=== PATIENT | male | born 1995 | race Caucasian/White ===

== ENCOUNTER 2024-09-10 17:04 | Emergency (ER) | payer SELFPAY ==
[2024-09-10 17:10] VITALS: BP 138/76; PULSE 106; RESP 17; TEMP 36.9; O2SAT 96; BMI 25.7
--- NOTE | 2024-09-10 17:14 | CTR_ITS ---
PROCEDURE INFORMATION: Exam: CT Head Without Contrast Exam date and time: 09/10/2024 5:35 PM Age: 28 years old Clinical indication: Injury or trauma; Fall; Blunt trauma (contusions or hematomas); With loss of consciousness; Not specified; Injury date: 09/08/2024 TECHNIQUE: Imaging protocol: Computed tomography of the head without contrast. Radiation optimization: All CT scans at this facility use at least one of these dose optimization techniques: automated exposure control; mA and/or kV adjustment per patient size (includes targeted exams where dose is matched to clinical indication); or iterative reconstruction. COMPARISON: No relevant prior studies available. RADIATION DOSE METRICS: Total DLP (mGy-cm): 1043.39 FINDINGS: Brain: Normal. No hemorrhage. Unremarkable white matter. No mass effect. Cerebral ventricles: No ventriculomegaly. Paranasal sinuses: Visualized sinuses are unremarkable. No fluid levels. Mastoid air cells: Visualized mastoid air cells are well aerated. Bones: Unremarkable. No acute fracture. Soft tissues: Unremarkable. CT/CT head wo con* [id number] IMPRESSION: No acute intracranial abnormality.
--- NOTE | 2024-09-10 17:19 | W.ED.HEATRA ---
HPI - Head Injury General: Chief complaint: Head Injury Stated complaint: fell, hit head Time Seen by Provider: 09/10/24 17:14 Source: patient Mode of arrival: ambulatory Limitations: no limitations History of Present Illness: 28-year-old male who states that he had been drinking heavily 2 nights ago with coworkers and had multiple falls he states he hit his back of his head on concrete has been having some headaches and decreased energy since then. He is unsure if he had loss consciousness has had no vomiting denies any neck pain or any other injuries Associated symptoms: Deny nausea, neck pain or vomiting Related Data Allergies Allergy/AdvReac Type Severity Reaction Status Date / Time No Known Allergies Allergy Verified 09/10/24 17:12 Review of Systems Const: Denies: fever(s), chills, body aches or change in appetite Eyes: Denies: blurry vision or eye discomfort ENMT: Denies: throat pain or dental pain Card: Denies: chest pain Resp: Denies: dyspnea GI: Denies: abdominal pain, nausea, vomiting or diarrhea Musc: Denies: neck pain or back pain Skin/Breast: Denies: rash Neuro: Reports: headache(s) Physical Exam Const: COMMON NORMALS: no acute distress, patient oriented x3 and healthy appearing HENMT: COMMON NORMALS: normocephalic HEAD & SCALP: normocephalic OTHER: tenderness to posterior scalp Eye: COMMON NORMALS: Equal, round and reactive pupils present and EOMs intact bilaterally PUPIL: Yes Equal, round and reactive pupils present Neck/C-Spine: COMMON NORMALS: full ROM and supple CERVICAL SPINE: No pain with cervical ROM and No Cervical spine tenderness Chest: COMMONS NORMALS: normal inspection of the chest Resp: COMMON NORMALS: normal respiratory effort Cardio: COMMON NORMALS: regular rate RATE: regular rate Extremity: COMMON NORMALS: normal to inspection and full ROM Neuro: COMMON NORMALS: patient oriented x3, moves all extremities and no focal motor deficits Psych: COMMON NORMALS: mental status grossly normal, Normal thought process present and cooperative THOUGHT PROCESS: Normal thought process present Skin: COMMON NORMALS: no rashes or lesions noted and no wounds GENERAL SKIN EXAM: no rashes or lesions noted Course Vital Signs: Vital signs: Vital Signs Temperature 98.4 F 09/10/24 17:10 Pulse Rate 114 H 09/10/24 17:49 Respiratory Rate 17 09/10/24 17:10 Blood Pressure 131/79 09/10/24 17:49 Pulse Oximetry 95 09/10/24 17:49 Oxygen Delivery Me thod Room Air 09/10/24 17:49 MDM - Head Injury Medcial Decision Making Patient presents with a closed head injury imaging here is negative he is well-appearing here stable for discharge follow-up PCP return if worsening. Medical Records I reviewed the patient's medical records. Lab Data Radiology Impressions Head CT 09/10/24 17:14 IMPRESSION: No acute intracranial abnormality. All radiology interpretation(s) finalized by discharge Discharge Plan Discharge Patient Disposition: Home Clinical Impression: Closed head injury Condition: Stable Discharge Orders: Discharge ED (Routine); Ordered 09/10/24 Ordered By: Vanesa Marx Discharge Diet: Advance as tolerated Discharge Activity: Resume usual activity Patient Instructions: Head Injury (ED) Print Language: Citizen Of [place] Coding Level of Care Code ED Guidance Consultant for Karthik Sanches
[2024-09-10 17:49] VITALS: BP 131/79; PULSE 114; O2SAT 95
[2024-09-10 18:06] VITALS: BP 138/73; PULSE 104; O2SAT 95
== END 2024-09-10 18:07 | disposition home or self-care (01) ==
PROVIDERS: Emergency Provider Emergency Medicine
DX: S09.8XXA Other specified injuries of head, initial encounter (principal); W19.XXXA Unspecified fall, initial encounter
CPT/HCPCS: 70450; 99284

== ENCOUNTER 2025-02-22 23:23 | Emergency (ER) | payer SELFPAY ==
[2025-02-22 23:23] VITALS: BP 138/71; PULSE 100; RESP 18; TEMP 36.6; O2SAT 91; BMI 23.0
--- NOTE | 2025-02-22 23:35 | ED_ITS ---
HPI - Alcohol 2 General: Chief Complaint: Alcohol Stated Complaint: ETOH History of Present Illness: Patient is a 29-year-old male who presents with acute alcohol intoxication. He reports consuming an unusually large amount of alcohol in the form of multiple shots, which is not his typical behavior. Patient states he normally consumes three, four, five drinks, suggesting today's consumption was significantly higher than his baseline. He describes feeling very, very, very drunk. Additionally, the patient complains of pain in his shoulders and back.Patient appears confused and in distress. Related Data Allergies Allergy/AdvReac Type Severity Reaction Status Date / Time No Known Allergies Allergy Verified 09/10/24 17:12 Physical Exam 2 Const: GENERAL APPEARANCE: cooperative, anxious and odor of alcohol detected; not ill appearing NUTRITIONAL APPEARANCE: thin ORIENTATION/CONSCIOUSNESS: Yes awake, Yes oriented to person and Yes oriented to place; not oriented to time HENMT: COMMON NORMALS: normocephalic, atraumatic and Normal external nose present HEAD & SCALP: normocephalic and atraumatic FACE & SINUS: normal facial exam and face symmetric NOSE: Normal external nose present Eye: COMMON NORMALS: Equal, round and reactive pupils present and EOMs intact bilaterally PUPIL: Yes Equal, round and reactive pupils present Neck/C-Spine: GENERAL: Yes trachea midline Chest: CHEST: Yes Symmetrical chest wall rise Resp: COMMON NORMALS: normal respiratory effort, No use of accessory muscles and clear to auscultation bilaterally AUSCULTATION: clear to auscultation bilaterally Cardio: COMMON NORMALS: regular rhythm RATE: bradycardic RHYTHM: regular rhythm Neuro: SENSORIUM/ORIENTATION: Yes oriented to person, Yes oriented to place and No oriented to time SPEECH: abnormal speech Details: slurred GAIT: Yes Staggering gait present MOTOR EXAM: Normal motor muscle tone present throughout Course 2 Vital Signs: Vital signs: Vital Signs Temperature 97.8 F 02/22/25 23:23 Pulse Rate 100 02/22/25 23:23 Respiratory Rate 18 02/22/25 23:23 Blood Pressure 138/71 02/22/25 23:23 Pulse Oximetry 91 02/22/25 23:23 Oxygen Delivery Me thod Room Air 02/22/25 23:23 MDM - Alcohol Medical Decision Making Alcohol level is 375. Other laboratory is nonactionable. He was given IV fluid, IV thiamine, Haldol and Zofran. He is resting comfortably. He is not suicidal or homicidal. On sobering to some degree, he will be discharged to custody of a responsible sober adult. Medically, he is stable. Lab Data 02/22/25 23:02/22/25 23: Laboratory Results WBC 9.41 10^3/uL (3.29-11.43) 02/22/25: RBC 4.99 10^6/uL (3.85-5.65) 02/22/25 23: Hgb 16.90 g/dL (11.27-16.99) 02/22/25 23: Hct 46.7 % (37-53) 02/22/25: MCV 93.6 fl (82-101) 02/22/25: MCH 33.9 pg (27-33) H 02/22/25: MCHC 36.2 g/dL (30-55) 02/22/25: RDW 13.1 % (12.1-15.1) 02/22/25: Plt Count 266 10^3/cmm (157-399) 02/22/25: MPV 8.9 fL (7.4-10.4) 02/22/25: Neut % (Auto) 45.6 % 02/22/25: Lymph % (Auto) 44.0 % 02/22/25: [place] % (Auto) 6.6 % 02/22/25: Eos % (Auto) 2.1 % 02/22/25 Baso % (Auto) 1.5 % 02/22/25: Neut # (Auto) 4.29 10^3/uL (1.8-7.7) 02/22/25: Lymph # (Auto) 4.1 10^3/uL (0.8-4.8) 02/22/25: [place] # (Auto) 0.6 10^3/uL (0.2-0.9) 02/22/25: Eos # (Auto) 0.2 10^3/uL (0.0-0.8) 02/22/25: Baso # (Auto) 0.1 10^3/uL (0.0-0.1) 02/22/25 23:29 Nucleated RBC % (auto) 0 % 02/22/25 23: Nucleated RBCs # 0.0 /100WBC 02/22/25 23:29 Sodium 144 mmol/L (136-145) 02/22/25 23:29 Potassium 3.9 mmol/L (3.5-5.1) 02/22/25 23:29 Chloride 105 mmol/L (98-107) 02/22/25 23:29 Carbon Dioxide 18 mmol/L (22-29) L 02/22/25 23:29 Anion Gap 24.9 (5-19) H 02/22/25 23:29 BUN 6 mg/dL (6-20) 02/22/25 23: Creatinine 0.8 mg/dL (0.7-1.2) 02/22/25 23:29 GFR Calculation 114.3 mL/min (90-130) 02/22/25 23:29 Glucose 105 mg/dL (65-115) 02/22/25 23:29 Calculated Osmolality 296 mOsm/kg (285-295) H 02/22/25 23:29 Calcium 9.2 mg/dL (8.5-10.5) 02/22/25 23:29 Total Bilirubin 0.2 mg/dL (0.15-1.2) 02/22/25 23:29 AST 33 U/L (0-40) 02/22/25 23:29 ALT 27 U/L (0-41) 02/22/25 23:29 Alkaline Phosphatase 112 U/L (40-130) 02/22/25 23:29 Total Protein 7.4 g/dL (6.6-8.7) 02/22/25 23:29 Albumin 5.0 g/dL (3.5-5.2) 02/22/25 23: Globulin 2.4 g/dL (1.3-4.6) 02/22/25 23:29 Salicylates < 0.3 mg/dL (3-10) L 02/22/25 23:29 Acetaminophen < 5.0 ug/mL (10-30) L 02/22/25 23:29 Ethyl Alcohol 375 mg/dL (0-10) H* 11/01/25 23:29 No radiology studies performed this visit Discharge Plan Discharge Patient Disposition: Home Clinical Impression: Alcoholic intoxication Condition: Stable Discharge Orders: Discharge ED (Routine); Ordered 02/23/25 Ordered By: Sina Monet Patient Instructions: Alcohol Intoxication (ED), Alcohol Withdrawal (ED), Opioid Safety, Pain Management, Patient Portal & Paul Instructions Print Language: Latvian Coding Level of Care Code ED Internal Medicine Veterinary Technician for Karthik Sanches
[2025-02-22 23:43] LABS: Hematocrit 46.7 % (37-53); Hemoglobin 16.90 g/dL (11.27-16.99); Mean Corpuscular HGB Conc 36.2 g/dL (30-55); Mean Corpuscular Hemoglobin 33.9 pg (27-33); Mean Corpuscular Volume 93.6 fl (82-101); Nucleated Red Blood Cells % 0 %; Platelet Count 266 10^3/cmm (157-399); Red Blood Count 4.99 10^6/uL (3.85-5.65); White Blood Count 9.41 10^3/uL (3.29-11.43)
[2025-02-23 00:04] LABS: Alanine Aminotransferase 27 U/L (0-41); Albumin Level 5.0 g/dL (3.5-5.2); Alkaline Phosphatase 112 U/L (40-130); Blood Urea Nitrogen 6 mg/dL (6-20); Calcium 9.2 mg/dL (8.5-10.5); Carbon Dioxide 18 mmol/L (22-29); Chloride 105 mmol/L (98-107); Creatinine Clr Calc Pharmacy 115.3020; Globulin 2.4 g/dL (1.3-4.6); Glucose 105 mg/dL (65-115); Osmolality Calculated 296 mOsm/kg (285-295); Sodium 144 mmol/L (136-145); Total Protein 7.4 g/dL (6.6-8.7)
[2025-02-23] MEDS: ondansetron 2 mg/ML SDV 2 mL 4 MG IVP (00:05)
[2025-02-23] MEDS: thiamine 100 mg/mL 2mL SDV IVP (00:05)
[2025-02-23] MEDS: haloperidol inj 5 mg/mL INJ 1 mL 3 MG IVP (00:05)
[2025-02-23 00:08] LABS: Acetaminophen < 5.0 ug/mL (10-30); Alcohol Level 375 mg/dL (0-10); Anion Gap 24.9 (5-19); Aspartate Amino Transferase 33 U/L (0-40); Potassium 3.9 mmol/L (3.5-5.1); Salicylate < 0.3 mg/dL (3-10)
== END 2025-02-23 04:53 | disposition home or self-care (01) ==
PROVIDERS: Emergency Provider Emergency Medicine
DX: F10.129 Alcohol abuse with intoxication, unspecified (principal); Y90.8 Blood alcohol level of 240 mg/100 ml or more
CPT/HCPCS: 80053; 80307; 85025; 96374; 96375; 99284; J1630; J2405; J3411; J7030